=== PATIENT | female | born 1965 | race Caucasian/White ===

== ENCOUNTER 2020-07-12 14:42 | Emergency (ER) | payer OTHER ==
[2020-07-12 15:13] LABS: HEMOGLOBIN 17.8 gm/dl (12.3-15.3); RED BLOOD COUNT 5.71 M/UL (4.00-5.10)
[2020-07-12 15:37] LABS: BUN/CREATININE RATIO 15 (0-10)
[2020-07-12] MEDS ORDERED: HYDROCODON-ACE1 EAC2 PO (17:14)
[2020-07-22] MEDS ORDERED: GABAPENTIN800 MG PO (07:57)
[2020-07-22] MEDS ORDERED: HYDROCODON-ACE1 EAC6 PO (07:58)
[2020-07-22] MEDS ORDERED: GLUCOPHAGE1000 MG PO (07:59)
[2020-07-22] MEDS ORDERED: NOVOLOG 10100 UNITS1 INJ (07:59)
== END 2020-07-12 17:45 | disposition home or self-care (01) ==
LOC: ER1 14:42
PROVIDERS: Student in an Organized Health Care Education/Training Program
DX: S52.501A Unspecified fracture of the lower end of right radius, initial encounter for closed fracture (principal); S52.601A Unspecified fracture of lower end of right ulna, initial encounter for closed fracture; V49.40XA Driver injured in collision with unspecified motor vehicles in traffic accident, initial encounter; Y92.410 Unspecified street and highway as the place of occurrence of the external cause
CPT/HCPCS: 70450; 71045; 72125; 73090; 73110; 80053; 85025; 99284

== ENCOUNTER → 2020-07-20 | Outpatient (CLI) | payer OTHER ==
[~2020-07-20] MED LIST: GABAPENTIN800 MG PO; GLUCOPHAGE1000 MG PO; HYDROCODON-ACE1 EAC2 PO; HYDROCODON-ACE1 EAC6 PO; NOVOLOG 10100 UNITS1 INJ
== END ==
LOC: KOH-I 09:49
DX: S62.101A Fracture of unspecified carpal bone, right wrist, initial encounter for closed fracture (principal); S52.571A Other intraarticular fracture of lower end of right radius, initial encounter for closed fracture; S52.691A Other fracture of lower end of right ulna, initial encounter for closed fracture
CPT/HCPCS: 73200

== ENCOUNTER → 2020-07-22 | Day surgery (SDC) | payer OTHER ==
[~2020-07-22] VITALS: Ht 157.5 cm; Wt 83.5 kg
[2020-07-22 07:55] LABS: HEMOGLOBIN 16.8 gm/dl (12.3-15.3); RED BLOOD COUNT 5.4 M/UL (4.00-5.10); WHITE BLOOD COUNT 11.5 K/UL (4.5-11.0)
[2020-07-22 08:19] LABS: BUN/CREATININE RATIO 31 (0-10)
== END | disposition home or self-care (01) ==
LOC: OR 07:02
PROVIDERS: Anesthesiology
DX: S52.571A Other intraarticular fracture of lower end of right radius, initial encounter for closed fracture (principal); S52.601A Unspecified fracture of lower end of right ulna, initial encounter for closed fracture; S63.014A Dislocation of distal radioulnar joint of right wrist, initial encounter; E11.40 Type 2 diabetes mellitus with diabetic neuropathy, unspecified; J44.9 Chronic obstructive pulmonary disease, unspecified; M54.9 Dorsalgia, unspecified; G89.29 Other chronic pain; F17.210 Nicotine dependence, cigarettes, uncomplicated; Z79.84 Long term (current) use of oral hypoglycemic drugs; Z79.891 Long term (current) use of opiate analgesic; Z79.899 Other long term (current) drug therapy; Z20.822 Contact with and (suspected) exposure to COVID-19; V89.2XXA Person injured in unspecified motor-vehicle accident, traffic, initial encounter
CPT/HCPCS: 36415; 73110; 76000; 80048; 82962; 85025; 94640; 94664; C1713; J0171; J0690; J1100; J1885; J2001; J2405; J2704; J2795; J2930; J3010; J7030; J7120; U0002